=== PATIENT | female | born 1990 | race Caucasian/White ===

== ENCOUNTER 2019-11-07 18:20 | Emergency (ER) | payer MEDICAID ==
[~2019-11-07] VITALS: Ht 167.6 cm; Wt 77.1 kg
[2019-11-07 18:28] VITALS: BP 117/83
== END 2019-11-07 20:45 | disposition left against medical advice (07) ==
LOC: EDBD 18:20 → ER 18:21
DX: M79.604 Pain in right leg (principal); Z53.21 Procedure and treatment not carried out due to patient leaving prior to being seen by health care provider